=== PATIENT | female | born 1955 | race Caucasian/White ===

== ENCOUNTER → 2018-03-01 13:38 | Day surgery (SDC) | payer MEDICARE, OTHER, SELFPAY ==
[2018-03-01 14:22] VITALS: BP 117/76; PULSE 80; RESP 16; TEMP 36.3; O2SAT 97; BMI 26.6
[2018-03-01] MEDS: fentaNYL 250 MCG/5 ML VIAL IV (15:20)
[2018-03-01] MEDS: MIDAZOLAM 5 MG/5 ML VIAL IV (15:21)
--- NOTE | 2018-03-01 15:22 | PM.OP.1 ---
Operative Date/Time/Diagnoses - Date of procedure: 03/01/18 Time of procedure: 15:40 Pre-op diagnosis: Personal History of Rectal Cancer Post-op diagnosis: same Procedure & Clinicians Procedure: Colonoscopy to the cecum Same procedure as scheduled: Yes Indications: Personal history of rectal cancer with a left hemicolectomy and short Roxann's pouch Surgeon: Fadia Carbajal Anesthesia Type: Sedation (Versed 2 mg; fentanyl 100 mcg) Operative Notes Findings: 1. Excellent prep 2. No polyps or mass lesions 3. No AV malformations 4. Distal rectal mucosa visualized and a Roxann's pouch is fibrotic and hemorrhagic without discrete lesion. The patch is only approximately 4 to 5 cm in length 5. No evidence of recurrence Closure Type: not applicable Specimen(s): none sent Procedure in detail: After obtaining informed consent, the patient is brought to the GI suite and placed in the left lateral decubitus position on the examination table. A time-out was held per [facility] protocol. Incremental doses of Versed and fentanyl were administered to the patient until an appropriate level of sedation was achieved to allow us to continue. We began by 1st examining the short Roxann's pouch. The colonoscope was gently passed into the patient's anus for a distance of about 4-5 cm. The rectal mucosa was examined and found to be extremely friable and hemorrhagic with the slightest touch. No discrete hemorrhage was appreciated. No biopsies were obtained here. The scope was withdrawn. The right lower quadrant ostomy bag was opened and all ostomy contents were aspirated. The colonoscope was then passed into the colon and advanced to the cecum. Approximately 50 cm of colon remained. No polyps or mass lesions were appreciated. The cecum was easily visualized and photographed. It was identified by the ileocecal valve and the opening of the ileum. The scope was then withdrawn being sure to go performed on all mucosal folds and prominences and get excellent examination. Other findings are noted above. Air was then aspirated from the colon and the procedure was concluded. The patient tolerated the procedure very well and was taken to the postanesthesia care unit in good condition. Complications: none Condition: stable Disposition: PACU Plan for aftercare: 1. Discharged to home 2. Plan for next colonoscopy in 5 years or as clinically indicated
[2018-03-01 15:23] VITALS: BP 99/63; PULSE 74; RESP 12; TEMP 37.1; O2SAT 94
[2018-03-01 15:26] VITALS: BP 104/59; PULSE 75; RESP 12; O2SAT 94
[2018-03-01 15:30] VITALS: BP 101/64; PULSE 73; RESP 13; O2SAT 94
[2018-03-01 15:33] VITALS: TEMP 37
[2018-03-01 15:45] VITALS: BP 102/65; RESP 20; TEMP 36.8; O2SAT 94
[2018-03-01] MEDS: SODIUM CHLORIDE 0.9% 1,000 ML 100 ML IV (16:04)
--- NOTE | 2018-03-01 16:08 | SUR.PHASEII ---
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 HOWEVER, AMOUNT AND END IS ACCURATE
== END ==
PROVIDERS: Family Provider Family Medicine; PCP Family Medicine; Visit Provider Surgery
PROC: 0DJD8ZZ Inspection of Lower Intestinal Tract, Via Natural or Artificial Opening Endoscopic (ICD-10-PCS; CPT 45378; principal; 2018-03-01 15:15)
DX: K62.5 Hemorrhage of anus and rectum (principal); Z85.048 Personal history of other malignant neoplasm of rectum, rectosigmoid junction, and anus; Z93.3 Colostomy status; Z90.49 Acquired absence of other specified parts of digestive tract; I25.10 Atherosclerotic heart disease of native coronary artery without angina pectoris; E78.5 Hyperlipidemia, unspecified; E55.9 Vitamin D deficiency, unspecified
CPT/HCPCS: 45378; 44388; J2250; J3010

== ENCOUNTER → 2018-03-08 12:07 | Outpatient (CLI) | payer MEDICARE, OTHER, SELFPAY ==
[2018-03-01 15:45] VITALS: TEMP 36.8
--- NOTE | 2018-03-11 09:06 | PM.PFT.1 ---
Pulmonary Function Test Referral & Results Date Patient Seen: 03/08/18 Requesting provider: Audra Worrell Results: The spirometry demonstrates an FVC of 3.13 L which is 98% of predicted. The FEV1 was measured at 2.50 L which is 102% of predicted. The FEV1/FVC ratio was 80 which is 103% of predicted. No bronchodilator was administered Lung volumes show an SVC of 3.03 L which is 101% of predicted. The diffusing capacity was measured at 25.46 which is 104% of predicted. The maximum voluntary ventilation was normal. Interpretation: This study demonstrates normal pulmonary function
== END ==
PROVIDERS: Family Provider Family Medicine; PCP Family Medicine; Visit Provider Internal Medicine Rheumatology
DX: M34.1 CR(E)ST syndrome (principal)
CPT/HCPCS: 94010; 94726; 94729